=== PATIENT | male | born 1965 | race African-American/Black ===

== ENCOUNTER 2016-11-06 11:45 | Inpatient (IN) | payer OTHER ==
--- NOTE | ~2016-11-06 | EKG ---
PATIENT: TAMERA WEBB UNIT #: [id number] Ventricular Rate: 102 BPM Atrial Rate: 254 BPM QRS Duration: 120 ms Q-T Interval: 426 ms QTC Calculation(Bezet): 555 ms Calculated R [place]: 0 degrees Calculated T [place]: 99 degrees Diagnosis Line: Atrial flutter with variable A-V block with Diagnosis Line: premature ventricular or aberrantly conducted Diagnosis Line: complexes Diagnosis Line: Incomplete left bundle branch block Diagnosis Line: ST and T wave abnormality, consider lateral ischemia Diagnosis Line: Abnormal ECG Diagnosis Line: When compared with ECG of 06-NOV-2016 11:22, Diagnosis Line: (unconfirmed) Diagnosis Line: Atrial flutter has replaced Sinus rhythm Diagnosis Line: T wave inversion less evident in Anterior leads Diagnosis Line: QT has lengthened Diagnosis Line: Confirmed by ZULMEA HUNTER MD ([id number]) on 11/07/2016 Diagnosis Line: 4:55:55 AM INTERPRETING MD: DALE BURDEN
--- NOTE | ~2016-11-06 | CR72 ---
[facility] A Service of [facility] RADIOLOGY TEXT RESULTS PATIENT: TAMERA WEBB LOCATION: [facility] [id number] : 65 UNIT #: [id number] AGE: [address]: Denis Moore MD SEX: M ORDER DR: [id number] [facility] [address] [facility] [place], [place] [address] [id number] MR#: [id number] Acc #: [id number] NAME: TAMERA WEBB : 1965 SEX: M STUDY DATE/TIME: 11/06/2016 12:06 UNIT: [facility] ROOM: STUDY DESCRIPTION: CR Chest Single View Portable Attending Physician: El Reina M.D. Ordering Physician: El Reina M.D. Primary Care Physician: Feroz Mark MEDICAL IMAGING REPORT This report is preliminary unless electronic signature is present EXAM Chest portable, 11/06/2016 12:06 hours HISTORY 51-year-old man with shortness of air for 2-3 days. History of CHF and smoking. COMPARISON Chest x-ray and CT angiogram of the chest, 09/04/2016 FINDINGS 2 portable upright chest views demonstrates stable cardiomegaly and pacer device. The aortic contours are normal. The pulmonary vessels are mildly prominent in size but the lungs are clear and there are no effusions. IMPRESSION Stable cardiomegaly and pacer device. There is mild pulmonary venous distension similar to 09/04/2016 with no acute pulmonary or pleural findings. Dictated by... Tamika He M.D. THIS IS AN ELECTRONICALLY VERIFIED REPORT Tamika He M.D. at 11/06/2016 6:54 PM [place] TD: 11/06/2016 15:14 JOB #: [id number] MEDICAL IMAGING REPORT Page 1 of 1 COPY
--- NOTE | ~2016-11-06 | EKG ---
PATIENT: TAMERA WEBB UNIT #: [id number] Ventricular Rate: 70 BPM Atrial Rate: 70 BPM P-R Interval: 184 ms QRS Duration: 114 ms Q-T Interval: 434 ms QTC Calculation(Bezet): 468 ms P [place]: 31 degrees Calculated R [place]: -12 degrees Calculated T Y[place]: 78 degrees Diagnosis Line: Sinus rhythm with occasional Premature ventricular Diagnosis Line: complexes Diagnosis Line: Possible Left atrial enlargement Diagnosis Line: Incomplete left bundle branch block Diagnosis Line: Left ventricular hypertrophy with repolarization Diagnosis Line: abnormality Diagnosis Line: T wave abnormality, consider anterior ischemia Diagnosis Line: Abnormal ECG Diagnosis Line: When compared with ECG of 05-SEP-2016 05:37, Diagnosis Line: Sinus rhythm has replaced Atrial fibrillation Diagnosis Line: T wave inversion now evident in Anterior leads Diagnosis Line: Confirmed by ZULEMA HUNTER MD ([id number]) on 11/07/2016 Diagnosis Line: 4:52:39 AM INTERPRETING MD: DALE BURDEN
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
--- NOTE | ~2016-11-06 | EKG ---
PATIENT: TAMERA WEBB UNIT #: [id number] Ventricular Rate: 84 BPM Atrial Rate: 241 BPM QRS Duration: 122 ms Q-T Interval: 462 ms QTC Calculation(Bezet): 545 ms Calculated R [place]: -4 degrees Calculated T [place]: 86 degrees Diagnosis Line: Atrial fibrillation Diagnosis Line: Non-specific intra-ventricular conduction delay Diagnosis Line: Nonspecific ST and T wave abnormality Diagnosis Line: Abnormal ECG Diagnosis Line: When compared with ECG of 06-NOV-2016 16:15, Diagnosis Line: Atrial fibrillation has replaced Atrial flutter Diagnosis Line: Confirmed by ZULEMA HUNTER MD ([id number]) on 11/10/2016 Diagnosis Line: 7:00:18 AM INTERPRETING MD: DALE BURDEN
--- NOTE | ~2016-11-06 | DS ---
Unit #: [id number] #: [id number] Patient: TAMERA WEBB [id number] [address] [place], [place] [address] [id number] I MR#: [id number] NAME: TAMERA WEBB ROOM: 548 Age: 51 Sex: M Admission Date: 11/06/2016 : 1965 Discharge Date: 11/08/2016 Attending Physician: Denis Moore M.D. Primary Care Physician: Feroz Mark DISCHARGE SUMMARY HOSPITAL COURSE This is a 51-year-old male with acute on chronic severe systolic CHF, nonischemic cardiomyopathy, EF reduced to 25% to 30%, status post AICD implantation. He presented with dyspnea worsening over the last 2 days and nonproductive cough. He was found to be in recurrent AFib with RVR, which was intermittent in nature. He was given 2 doses of digoxin and converted to normal sinus rhythm. Also, 2 doses of metoprolol were given. He was started on amiodarone IV. After his conversion, he was treated for acute COPD exacerbation and acute on chronic kidney disease. His hospital course is complicated by small bouts of hypotension, especially at night due to medications. His medications were tweaked. He seems to be doing better. Blood pressures are marginal, but his systolic has remained greater than 100 today. During the hospital course, consults were placed for Dr. Quach to see him for COPD. DIAGNOSTIC STUDIES IMAGING STUDIES: Include 12-lead EKG on 11/07/2016, which showed atrial fibrillation with nonspecific intraventricular conduction delay. Rate was controlled at 84 beats per minute. Prior to that EKG, he had one which showed atrial flutter with AV block with PVCs and an incomplete left bundle-branch block. Today, on tele B, he did have a 7-beat run of V-tach that converted spontaneously. The patient did feel some palpitations during that time. It was around 5:30 a.m. in the morning he was sleeping. LABORATORY RESULTS: Include sodium 137, potassium 4.5, chloride 104, CO2 of 27, BUN is 41, creatinine is 2.0, glucose is 84, and magnesium is 2.1. Hemoglobin 15.5, hematocrit 47.5, WBCs 10.5, and platelet count 170. DISCHARGE DIAGNOSES Include: 1. Recurrent atrial fibrillation with rapid ventricular response converted to normal sinus rhythm. 2. Short course of nonsustained ventricular tachycardia, status post automatic implantable cardioverter defibrillator. 3. Acute on chronic systolic congestive heart failure with an EF of 25% to 30%. 4. Acute exacerbation of chronic obstructive pulmonary disease. 5. Hypertension and hyperlipidemia. 6. He had acute kidney injury with chronic kidney disease and leukocytosis. 7. Hypotension. DISCHARGE MEDICATIONS Unit #: [id number] #: [id number] Patient: TAMERA WEBB Include the following: Amiodarone 200 mg daily, Tylenol 650 mg every 6 hours as needed for mild pain or headache, Eliquis 5 mg b.i.d., Coreg 50 mg b.i.d., Lasix 40 mg b.i.d., fenofibrate 145 mg p.o. nightly, atorvastatin 10 mg at bedtime, hydralazine 25 mg b.i.d., losartan 100 mg at bedtime, aspirin 81 daily, spironolactone 25 mg daily, potassium chloride 10 mEq b.i.d., Synthroid 0.025 mg p.o. daily, and isosorbide mononitrate 30 mg controlled-release tablet p.o. daily. Cardiology is admitting him. We will discharge him home. He is in stable condition. Meds per med rec sheet, however, prescriptions were provided for the following medications; Imdur ER 30 mg daily, hydralazine 25 mg b.i.d., Cordarone 200 mg daily, and he received script for a BMP and a BNP to be checked in 3 weeks. The patient was counseled on low-salt diet. He needs to be compliant with his medications. This was further indepthly discussed with the patient. He should not only watch the low-salt diet, also watch his fluid intake and weigh daily for his chronic systolic heart failure. He will need to follow up with Dr. Moore and an appointment has been made with him on , 12/14/2016 at 2:45 p.m. He will also need to see Dr. Quach for exercise oximetry, follow up with him in [address] Quach has written a script for albuterol and Symbicort. He is up ambulating around the unit and stable. Blood pressure 133/94, however, on recheck at noon after he got his morning medications, it was around 110 systolically. Heart rate has been in the 50s to low 60s. He is afebrile at 98.0. He will need to get a BMP and a BNP checked in 3 weeks. A prescription has been provided to him. Also, I discussed with Dr. 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 Dr. Moore said he needs to be off for a week, which I gave a script to the patient indicating so. Dictated by... Shahnaz Jauregui APRN for Rosa Maria Maier TD: 11/09/2016 11:37 JOB #: [id number] DISCHARGE SUMMARY Page 1 of 1 X X DISCHARGE SUMMARY
--- NOTE | ~2016-11-06 | CO ---
Unit #: [id number] #: [id number] Patient: TAMERA WEBB [id number] [address] [address] [id number] I MR#: [id number] NAME: TAMERA WEBB ROOM: 548 Age: 51 Sex: M Admission Date: 11/06/2016 : 1965 Attending Physician: Denis Moore M.D. Consultation Date: 11/06/2016 CONSULTATION REPORT REASON FOR CONSULTATION COPD. CHIEF COMPLAINT Shortness of breath. HISTORY OF PRESENT ILLNESS Patient is a 51-year-old male with a past medical history of cardiomyopathy, AICD placement, likely sleep apnea, and recently quit smoking a few months ago. I am seeing the patient at the bedside. He is complaining of exertional dyspnea, cough, and some chest tightness on exertion. Also noticed to have witnessed apneas and loud snoring. PAST MEDICAL HISTORY 1. Cardiomyopathy. 2. Non-ST elevation [place]. 3. Chronic systolic heart failure. 4. Nonischemic cardiomyopathy. 5. Paroxysmal atrial fibrillation. 6. Hypertension. 7. Chronic obstructive pulmonary disease. 8. Chronic kidney disease. PAST SURGICAL HISTORY 1. Automatic implantable cardioverter-defibrillator placement. 2. Exploratory laparotomy. HOME MEDICATIONS 1. Amiodarone. 2. Eliquis. 3. Coreg. 4. Lasix. 5. Fenofibrate. 6. Lipitor. 7. Losartan. 8. Spironolactone. 9. Omeprazole. 10. Synthroid. ALLERGIES No known drug allergies. SOCIAL HISTORY Quit smoking four months ago. 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 Unit #: [id number] #: [id number] Patient: TAMERA WEBB FAMILY HISTORY Negative for coronary artery disease. PHYSICAL EXAMINATION VITAL SIGNS: Temperature 98, pulse 87, respirations 12, and blood pressure 120/70. NEUROLOGICAL: Awake, alert, and oriented, with no neurological deficits. HEENT: Pupils equal, round, and reactive to light and accommodation. Extraocular movements are intact. NECK: Supple. No JVD. CHEST: Bilateral air entry, bilateral mild rhonchi. GASTROINTESTINAL: Nontender and soft. Bowel sounds positive. EXTREMITIES: No edema. SKIN: No rashes and no ulcers. LYMPHATICS: No lymphadenopathy. DIAGNOSTIC STUDIES LABORATORY: Reviewed. IMAGING: Reviewed. ASSESSMENT 1. Very likely underlying chronic obstructive pulmonary disease. 2. Atrial fibrillation. 3. Cardiomyopathy with likely obstructive sleep apnea. 4. Hypertension. 5. Chronic kidney disease. PLAN Continue patient on bronchodilator. He will need exercise oximetry and will also need overnight oximetry. He will need formal evaluation for obstructive sleep apnea. Continue to maintain negative volume status. Diurese the patient. Continue bronchodilators. Will need outpatient pulmonary function test as well. We will continue to follow. Please see orders for detailed plans. Thank you very much for this consultation. Dictated by... Rosa Maria Baldwin TD: 11/06/2016 22:55 JOB #: [id number] CONSULTATION REPORT X Phoebe Quach MD CONSULTATION REPORT
[~2016-11-06 11:45] MED LIST: AFRIN NASAL SPR15 ML; ALDACTONE25 MG PO; AMIODARONE PO; APRESOLINE PO; ASPIRIN81 M2 PO; ATACAND PO; ATORVASTATIN CA10 MG PO; BENADRYL25 M1 PO; CARVEDILOL25 MG PO; CHEWABLE ASPIRI81 MG PO; CLONIDINE PO; CORDARONE200 M1 PO; COREG PO; COUMADIN PO; COUMADIN2.5 MG PO; COUMADIN5 MG PO; COZAAR100 MG PO; DIGOX0.125 MG PO; ELIQUIS5 MG PO; ESOMEPRAZOLE MA40 MG PO; FENOFIBRATE145 MG PO; FUROSEMIDE40 MG PO; HYDRALAZINE HCL25 MG PO; HYDROCODON-ACE1 EAC2 PO; HYDROCODON-ACE1 EAC7 PO; IMDUR PO; IMDUR-ER30 M1 PO; ISOSORBIDE MONO30 M1 PO; K-DUR20 ME1 PO; KLOR CON PO; LANOXIN PO; LANOXIN125 MCG PO; LASIX PO; LEVOTHROID25 MCG PO; LEVOTHYROXINE25 MCG PO; LIPITOR PO; LISINOPRIL PO; LOPID600 MG PO; LOSARTAN POTASS50 MG PO; MICRO-K10 MEQ PO; MULTI-VITAMIN1 TAB PO; NORCO 5/325MG PO; NORCO 7.5-3251 EACH PO; NORVASC PO; NORVASC10 MG PO; PACERONE PO; POTASSIUM CHLO10 ME1 PO; SYNTHROID25 MCG PO; TRICOR PO; WARFARIN SODIU2.5 MG PO
[2016-11-06 12:32] LABS: BASOPHIL# 0.1 X10e3 (0-0.3); BASOPHIL% 0.6 % (0-2.5); DIFF IND NO; EOSINOPHIL% 0.2 % (0.0-7.0); HEMATOCRIT 50.9 % (38.0-50.0); HEMOGLOBIN 16.7 gm/dL (13.0-16.0); LYMPHOCYTE# 1.9 X10e3 (1.0-3.5); LYMPHOCYTE% 15.4 % (17.0-45.0); MEAN CELL VOLUME 84.4 FL (83-96); MEAN CORPUSCULAR HEMOGLOBIN 27.7 PG (28-34); MEAN CORPUSCULAR HGB CONC 32.9 g/dL (30-36); MEAN PLATELET VOLUME 8.5 FL (6.5-11.5); MONOCYTE# 1.3 X10e3 (0-1.0); MONOCYTE% 10.6 % (3.0-12.0); NEUTROPHIL% 73.2 % (40-75); PLATELET COUNT 199 X10e3 (140-420); RED BLOOD COUNT 6.03 X10e (3.90-5.60); RED CELL DISTRIBUTION WIDTH 14.5 % (11.0-15.5); WHITE BLOOD COUNT 12.2 X10e3 (4.0-10.5)
[2016-11-06 12:41] LABS: POC - CKMB 1.5 ng/mL (0.0-7.9); POC - TROPONIN <0.05 ng/mL (<=0.05)
[2016-11-06 12:51] LABS: POC - CKMB 1.1 ng/mL (0.0-7.9); POC - TROPONIN <0.05 ng/mL (<=0.05)
[2016-11-06 13:13] LABS: ALBUMIN SERUM 4.1 g/dL (3.5-5.0); BILIRUBIN, DIRECT 0.3 mg/dL (0.0-0.2); BILIRUBIN,INDIRECT 1.4 mg/dL (0.0-0.9); BILIRUBIN,TOTAL 1.7 mg/dL (0.2-2.0); BUN/CREATININE RATIO 14.11; CALCIUM SERUM 9.3 mg/dL (8.4-10.2); CREATININE SERUM 1.7 mg/dL (0.6-1.4); GLOM FILT RATE Estimated 54.9 mL/min (>60); POTASSIUM 4.3 mmol/L (3.5-5.1); PROTEIN TOTAL SERUM 7.4 g/dL (6.0-8.3)
[2016-11-06 15:32] LABS: POC - CKMB 1.8 ng/mL (0.0-7.9); POC - TROPONIN <0.05 ng/mL (<=0.05)
[2016-11-07 06:50] LABS: BUN/CREATININE RATIO 18.12; CALCIUM SERUM 9.3 mg/dL (8.4-10.2); CREATININE SERUM 1.6 mg/dL (0.6-1.4); GLOM FILT RATE Estimated 58.9 mL/min (>60); POTASSIUM 4.1 mmol/L (3.5-5.1)
[2016-11-08 06:45] LABS: HEMATOCRIT 47.5 % (38.0-50.0); HEMOGLOBIN 15.5 gm/dL (13.0-16.0); MEAN CELL VOLUME 85.4 FL (83-96); MEAN CORPUSCULAR HEMOGLOBIN 27.9 PG (28-34); MEAN CORPUSCULAR HGB CONC 32.7 g/dL (30-36); MEAN PLATELET VOLUME 9.3 FL (6.5-11.5); RED BLOOD COUNT 5.57 X10e (3.90-5.60); RED CELL DISTRIBUTION WIDTH 14.9 % (11.0-15.5); WHITE BLOOD COUNT 10.5 X10e3 (4.0-10.5)
[2016-11-08 07:53] LABS: BUN/CREATININE RATIO 20.5; CALCIUM SERUM 8.9 mg/dL (8.4-10.2); GLOM FILT RATE Estimated 45.5 mL/min (>60); MAGNESIUM 2.1 mg/dL (1.6-3.0); POTASSIUM 4.5 mmol/L (3.5-5.1)
[2016-11-08] MEDS ORDERED: AMIODARONE PO (15:12)
[2016-11-08] MEDS ORDERED: SYMBICORT INH (15:27)
[2016-11-08] MEDS ORDERED: ALBUTEROL17 GM INH (15:29)
== END 2016-11-08 18:09 | disposition home or self-care (01) | DRG 308 ==
LOC: CED 11:45 → CEDOF 14:50 → C5B 15:52
PROVIDERS: Emergency Medicine; Internal Medicine Cardiovascular Disease; Nurse Practitioner Family
DX: I48.0 Paroxysmal atrial fibrillation (principal); I50.23 Acute on chronic systolic (congestive) heart failure; I47.2 Ventricular tachycardia; N17.9 Acute kidney failure, unspecified; J44.1 Chronic obstructive pulmonary disease with (acute) exacerbation; I42.8 Other cardiomyopathies; D75.1 Secondary polycythemia; I13.0 Hypertensive heart and chronic kidney disease with heart failure and stage 1 through stage 4 chronic kidney disease, or unspecified chronic kidney disease; Z79.01 Long term (current) use of anticoagulants; Z95.810 Presence of automatic (implantable) cardiac defibrillator; N18.9 Chronic kidney disease, unspecified; Z87.891 Personal history of nicotine dependence; E78.5 Hyperlipidemia, unspecified; D72.829 Elevated white blood cell count, unspecified; I95.2 Hypotension due to drugs; I44.7 Left bundle-branch block, unspecified; I48.92 Unspecified atrial flutter; I25.2 Old myocardial infarction; G47.33 Obstructive sleep apnea (adult) (pediatric); I25.10 Atherosclerotic heart disease of native coronary artery without angina pectoris
CPT/HCPCS: 36415; 71010; 80048; 80076; 82553; 83735; 83880; 84484; 85025; 85027; 93005; 94640; 94760; 96374; 96375; 99285; J0282; J1160; J1940; J3473; J3490

== ENCOUNTER 2017-04-11 13:39 | Inpatient (IN) | payer OTHER ==
[~2017-04-11] VITALS: Ht 175.3 cm; Wt 99.0 kg
--- NOTE | ~2017-04-11 | EKG ---
PATIENT: TAMERA WEBB UNIT #: [id number] Ventricular Rate: 90 BPM Atrial Rate: 174 BPM QRS Duration: 138 ms Q-T Interval: 434 ms QTC Calculation(Bezet): 530 ms Calculated R [place]: 10 degrees Calculated T [place]: 116 degrees Diagnosis Line: Atrial fibrillation Diagnosis Line: Non-specific intra-ventricular conduction block Diagnosis Line: T wave abnormality, consider lateral ischemia or Diagnosis Line: digitalis effect Diagnosis Line: Abnormal ECG Diagnosis Line: When compared with ECG of 11-APR-2017 14:53, Diagnosis Line: (unconfirmed) Diagnosis Line: Atrial fibrillation has replaced Sinus rhythm Diagnosis Line: Nonspecific T wave abnormality no longer evident Diagnosis Line: in Inferior leads Diagnosis Line: Nonspecific T wave abnormality, improved in Diagnosis Line: Anterior leads Diagnosis Line: Confirmed by ZULEMA HUNTER MD ([id number]) on 04/13/2017 Diagnosis Line: 4:56:31 PM INTERPRETING MD: DALE BURDEN
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
--- NOTE | ~2017-04-11 | EKG ---
PATIENT: TAMERA WEBB UNIT #: [id number] Ventricular Rate: 69 BPM Atrial Rate: 69 BPM P-R Interval: 188 ms QRS Duration: 126 ms Q-T Interval: 468 ms QTC Calculation(Bezet): 501 ms P [place]: 14 degrees Calculated R [place]: 16 degrees Calculated T [place]: 103 degrees Diagnosis Line: Normal sinus rhythm Diagnosis Line: Left atrial enlargement Diagnosis Line: Non-specific intra-ventricular conduction block Diagnosis Line: T wave abnormality, consider lateral ischemia Diagnosis Line: Abnormal ECG Diagnosis Line: When compared with ECG of 07-NOV-2016 05:33, Diagnosis Line: Sinus rhythm has replaced Atrial fibrillation Diagnosis Line: ST no longer depressed in Anterior leads Diagnosis Line: Nonspecific T wave abnormality now evident in Diagnosis Line: Inferior leads Diagnosis Line: Confirmed by ZULEMA HUNTER MD ([id number]) on 04/12/2017 Diagnosis Line: 10:23:23 PM INTERPRETING MD: DALE BURDEN
--- NOTE | ~2017-04-11 | CR72 ---
[facility] A Service of [facility] & [facility] RADIOLOGY TEXT RESULTS PATIENT: TAMERA WEBB LOCATION: [facility] 334- : [birth year] UNIT #: [id number] AGE: [address]: Denis Moore MD SEX: M ORDER DR: [id number] [facility] [address] [facility] [place], [place] [address] [id number] I MR#: [id number] Acc #: [id number] NAME: TAMERA WEBB : 1965 SEX: M STUDY DATE/TIME: 04/11/2017 15:15 UNIT: CEDOF ROOM: [id number] STUDY DESCRIPTION: CR Chest Single View Portable Attending Physician: Denis Moore M.D. Ordering Physician: Nahid Le M.D. Primary Care Physician: Feroz Mark MEDICAL IMAGING REPORT This report is preliminary unless electronic signature is present EXAM Chest x-ray 04/11/2017. INDICATIONS Shortness of air today. Former smoker. FINDINGS AP portable chest is compared with 11/06/2016. Heart remains enlarged. There is some mild vascular congestion, but the lungs are clear. No pneumothorax is seen. Dictated by... El Dugan Jr., M.D. THIS IS AN ELECTRONICALLY VERIFIED REPORT El Dugan Jr., M.D. at 04/12/2017 4:32 PM ISAIAH/hood TD: 04/11/2017 18:17 JOB #: [id number] MEDICAL IMAGING REPORT Page 1 of 1 COPY
--- NOTE | ~2017-04-11 | DS ---
Unit #: [id number] #: [id number] Patient: TAMERA WEBB [id number] [address] [address] [id number] I MR#: [id number] NAME: TAMERA WEBB ROOM: 334 Age: 52 Sex: M Admission Date: 04/11/2017 : 1965 Discharge Date: 04/13/2017 Attending Physician: Denis Moore M.D. Primary Care Physician: Feroz Mark DISCHARGE SUMMARY DISCHARGE DIAGNOSES 1. Nonischemic cardiomyopathy with left ventricular ejection fraction 20%, status post automatic implantable cardioverter defibrillator. 2. Paroxysmal atrial fibrillation/flutter with a controlled ventricular rate. 3. Chronic kidney disease. 4. Obstructive sleep apnea. 5. Hypothyroidism. DISCHARGE MEDICATIONS 1. Amiodarone 200 mg p.o. daily. 2. Eliquis 5 mg p.o. b.i.d. 3. Coreg 12.5 mg p.o. b.i.d. 4. Digoxin 125 mcg p.o. daily. 5. Lasix 40 mg p.o. b.i.d. 6. TriCor 145 mg p.o. b.i.d. 7. Lipitor 10 mg p.o. daily. 8. Losartan 25 mg p.o. daily. 9. Aldactone 25 mg p.o. daily. 10. Potassium chloride 10 mEq p.o. daily. 11. Levothyroxine 25 mcg p.o. daily. 12. Isosorbide dinitrate 5 mg p.o. daily. HOSPITAL COURSE This is a 52-year-old male known to Dr. Moore with a past history of nonischemic cardiomyopathy status post AICD placement, chronic systolic CHF with an EF of 10% and nonobstructive coronary artery disease per cardiac cath in 2010 at [facility]. He also has a history of hypertension, hyperlipidemia, chronic kidney disease and obstructive sleep apnea. He was recently admitted to [facility] on March 29 for shortness of breath and chest pain at which time he was diagnosed with congestive heart failure and diuresed and he underwent a Lexiscan Cardiolite stress test which was negative for ischemia. Since his discharge from there on the he continued to have ongoing shortness of breath. He presented to the ER with reports of shortness of breath and orthopnea, as well as nonradiating left anterior chest pain. He denies associated symptoms of shortness of breath associated with the chest pain. He had been compliant with his medication but according to his he had not been following his fluid restriction. In the ER his chest x-ray revealed mild vascular congestion. He was admitted for observation and diuresed with Lasix. Today his breathing is improved. He has been ambulating in the halls with some slight dyspnea on exertion per patient. He denies chest pain. His weight is down two Unit #: [id number] #: [id number] Patient: TAMERA WEBBnds in two days. He is stable and ready for discharge home. His creatinine is slightly elevated today. We will check a BMP in our office on Sunday. He says he has a referral for an appointment with a e commerce solution architect. He has been told to keep a followup appointment with the e commerce solution architect. Cardiac rehab has been consulted and will be following. PHYSICAL EXAMINATION VITAL SIGNS: Temperature 98.6, heart rate 64, respiratory rate 18, blood pressure 101/66. GENERAL: He is an awake and alert 52-year-old male ambulating in the halls. HEART: S1, S2, irregularly irregular rhythm. LUNGS: Clear and nonlabored respirations. ABDOMEN: Soft, nontender and nondistended. EXTREMITIES: No pedal edema. Pulses are palpable. No cyanosis. DIAGNOSTIC STUDIES LABORATORY: Sodium 141, potassium 4, chloride 101, BUN 33, creatinine 2, glucose 96, hemoglobin 14.4, hematocrit 43.6, white blood cell count 10, platelets 187. CARDIOVASCULAR: He has afib with a controlled ventricular rate in the 60s and 70s on monitor. DISCHARGE INSTRUCTIONS 1. The patient will be discharged home today. 2. CHF education given to patient. Cardiac rehab is following as outpatient. 3. Check BMP in our office on Sunday. 4. Keep appointment with nephrology as instructed. 5. Medications per home medication reconciliation sheet. 6. Prescriptions provided as needed. 7. Follow up with Dr. Moore as previously scheduled on May 10, 2017 at 3:00 p.m. 8. The patient has been instructed on adhering to fluid restriction and healthy heart low salt diet. Dictated by... Hilaria Pang APRN for Rosa Maria Louis/tami TD: 04/15/2017 19:19 JOB #: [id number] DISCHARGE SUMMARY Page 1 of 1 X X DISCHARGE SUMMARY
[~2017-04-11 13:39] MED LIST changes: +ALBUTEROL17 GM INH; +SYMBICORT INH
[2017-04-11 15:02] LABS: BASOPHIL% 0.4 % (0-2.5); EOSINOPHIL% 0.3 % (0.0-7.0); HEMOGLOBIN 14.2 gm/dL (13.0-16.0); LYMPHOCYTE# 1.1 X10e3 (1.0-3.5); MEAN CELL VOLUME 84.8 FL (83-96); MEAN CORPUSCULAR HEMOGLOBIN 28.1 PG (28-34); MEAN CORPUSCULAR HGB CONC 33.1 g/dL (30-36); MEAN PLATELET VOLUME 7.9 FL (6.5-11.5); MONOCYTE# 0.8 X10e3 (0-1.0); MONOCYTE% 6.8 % (3.0-12.0); NEUTROPHIL# 9.4 X10e3 (1.5-7.1); NEUTROPHIL% 82.5 % (40-75); PLATELET COUNT 196 X10e3 (140-420); RED BLOOD COUNT 5.07 X10e (3.90-5.60); RED CELL DISTRIBUTION WIDTH 14.6 % (11.0-15.5); WHITE BLOOD COUNT 11.4 X10e3 (4.0-10.5)
[2017-04-11 15:04] LABS: DIFF IND NO
[2017-04-11 15:28] LABS: ALBUMIN SERUM 3.9 g/dL (3.5-5.0); BILIRUBIN, DIRECT 0.3 mg/dL (0.0-0.2); BILIRUBIN,INDIRECT 0.8 mg/dL (0.0-0.9); BILIRUBIN,TOTAL 1.1 mg/dL (0.2-2.0); BUN/CREATININE RATIO 17.05; CALCIUM SERUM 8.9 mg/dL (8.4-10.2); CREATININE SERUM 1.7 mg/dL (0.6-1.4); GLOM FILT RATE Estimated 52.6 mL/min (>60); POTASSIUM 4.2 mmol/L (3.5-5.1); PROTEIN TOTAL SERUM 6.8 g/dL (6.0-8.3)
[2017-04-11 16:30] LABS: %MB 4.6 % (0.0-4.0); MB 3.2 ng/ml
[2017-04-11 16:38] LABS: POC - CKMB 1.3 ng/mL (0.0-7.9); POC - TROPONIN <0.05 ng/mL (<=0.05)
[2017-04-11] MEDS ORDERED: AMIODARONE HCL200 MG PO (16:56)
[2017-04-11] MEDS ORDERED: DIGOX125 MCG PO (16:57)
[2017-04-11] MEDS ORDERED: LIPITOR PO (16:57)
[2017-04-11] MEDS ORDERED: CARVEDILOL25 MG PO (16:57)
[2017-04-11] MEDS ORDERED: TRICOR145 MG PO (16:57)
[2017-04-11] MEDS ORDERED: LASIX PO (16:57)
[2017-04-11] MEDS ORDERED: NORVASC10 MG PO (16:57)
[2017-04-11] MEDS ORDERED: ELIQUIS5 MG PO (16:57)
[2017-04-11] MEDS ORDERED: ISOSORBIDE DINIT5 MG PO (16:58)
[2017-04-11] MEDS ORDERED: LEVOTHYROXINE25 MC1 PO (16:58)
[2017-04-11] MEDS ORDERED: LOSARTAN POTASS25 MG PO (16:58)
[2017-04-11] MEDS ORDERED: KCL PO (16:58)
[2017-04-11] MEDS ORDERED: ALDACTONE25 MG PO (16:58)
[2017-04-12 05:49] LABS: HEMATOCRIT 43.6 % (38.0-50.0); HEMOGLOBIN 14.4 gm/dL (13.0-16.0); MEAN CELL VOLUME 85.2 FL (83-96); MEAN CORPUSCULAR HEMOGLOBIN 28.2 PG (28-34); MEAN CORPUSCULAR HGB CONC 33.1 g/dL (30-36); MEAN PLATELET VOLUME 8.2 FL (6.5-11.5); RED BLOOD COUNT 5.12 X10e (3.90-5.60); RED CELL DISTRIBUTION WIDTH 14.2 % (11.0-15.5)
[2017-04-12 06:49] LABS: BUN/CREATININE RATIO 16.87; CREATININE SERUM 1.6 mg/dL (0.6-1.4); GLOM FILT RATE Estimated 56.6 mL/min (>60); POTASSIUM 4.1 mmol/L (3.5-5.1)
[2017-04-13 05:52] LABS: BUN/CREATININE RATIO 16.5; CALCIUM SERUM 9.6 mg/dL (8.4-10.2); GLOM FILT RATE Estimated 43.2 mL/min (>60)
[2017-04-13] MEDS ORDERED: COREG12.5 MG PO (14:03)
== END 2017-04-13 15:35 | disposition home or self-care (01) | DRG 291 ==
LOC: CED 13:39 → CEDOF 17:08 → C3A PCU 17:08 → CED 17:08 → CEDOF 18:15 → CED 18:15 → C3A PCU 18:48 → CEDOF 18:48 → C3A PCU 04-13 15:35
PROVIDERS: Emergency Medicine; Internal Medicine Cardiovascular Disease
DX: I13.0 Hypertensive heart and chronic kidney disease with heart failure and stage 1 through stage 4 chronic kidney disease, or unspecified chronic kidney disease (principal); I50.23 Acute on chronic systolic (congestive) heart failure; I42.9 Cardiomyopathy, unspecified; N18.3 Chronic kidney disease, stage 3 (moderate); I48.92 Unspecified atrial flutter; I08.1 Rheumatic disorders of both mitral and tricuspid valves; E78.5 Hyperlipidemia, unspecified; G47.33 Obstructive sleep apnea (adult) (pediatric); I25.2 Old myocardial infarction; I48.0 Paroxysmal atrial fibrillation; Z79.01 Long term (current) use of anticoagulants; Z91.19 Patient's noncompliance with other medical treatment and regimen; Z95.810 Presence of automatic (implantable) cardiac defibrillator; F17.200 Nicotine dependence, unspecified, uncomplicated; E03.9 Hypothyroidism, unspecified
CPT/HCPCS: 36415; 71010; 80048; 80076; 82550; 82553; 83880; 84484; 85025; 85027; 93005; 94760; 96374; 99285; J1940